=== PATIENT | female | born 1950 ===

== ENCOUNTER 2017-12-20 11:15 | Inpatient (IN) | payer OTHER ==
[~2017-12-20] VITALS: Ht 152.4 cm; Wt 77.1 kg
[2017-12-20] MEDS ORDERED: CARDIZEM CD180 M1 PO (12:42)
[2017-12-20] MEDS ORDERED: RIVAROXABAN PO (12:43)
[2017-12-20] MEDS ORDERED: ZOCOR20 MG (12:43)
[2017-12-20] MEDS ORDERED: FENOFIBRATE160 MG PO (12:44)
[2017-12-20] MEDS ORDERED: METFORMIN HCL1000 M1 PO (12:45)
[2017-12-20] MEDS ORDERED: HUM (12:45)
[2017-12-20] MEDS ORDERED: MEDROL4 MG PO (12:46)
[2017-12-20] MEDS ORDERED: PREVACID30 MG PO (12:46)
[2017-12-20] MEDS ORDERED: DOLOGESIC 500-1 EACH PO (12:46)
== END 2017-12-30 16:02 | disposition home or self-care (01) | DRG 331 ==
LOC: SURH 12-27 07:00 → SURG 12-27 07:45 → O/R 12-27 07:45 → SURH 12-27 11:15 → SURG 12-27 19:17
PROVIDERS: Colon & Rectal Surgery
PROC: 0DTP4ZZ Resection of Rectum, Percutaneous Endoscopic Approach (ICD-10-PCS; 2017-12-27)
PROC: 0DJD8ZZ Inspection of Lower Intestinal Tract, Via Natural or Artificial Opening Endoscopic (ICD-10-PCS; 2017-12-27)
PROC: 0DTN4ZZ Resection of Sigmoid Colon, Percutaneous Endoscopic Approach (ICD-10-PCS; principal; 2017-12-27 07:00)
DX: K57.32 Diverticulitis of large intestine without perforation or abscess without bleeding (principal); I48.2 Chronic atrial fibrillation; I11.9 Hypertensive heart disease without heart failure; E11.9 Type 2 diabetes mellitus without complications; E78.4 Other hyperlipidemia; M06.89 Other specified rheumatoid arthritis, multiple sites